=== PATIENT | male | born 1950 | race Caucasian/White ===

== ENCOUNTER 2020-06-09 10:57 | Inpatient (IN) | payer MEDICARE, OTHER ==
[~2020-06-09] VITALS: Ht 180.3 cm; Wt 61.2 kg
--- NOTE | 2020-06-09 13:00 | NUR ---
CLINICAL GENETICIST NOTE :Admitted A 69 Y/O male from [facility] on 5150 hold for GD ,per 5150 hold patient patient need assistance and declining help ,clients hands swollen and can't feed himself ,clients hand containing urine and feces through out the floor ,client does not have in home support services due to testing testing positive for Covid ,patient unable to care for himself .Upon face to face assessment ,patient alert ,oriented x1, easily agitated and aggressive,not following directions ,talking and mumbling to himself ,disheveled and unkempt ,disorganized thoughts,patient refused skin assessment but noted bilateral hands swollen and Daniella SIBLEY notified with new orders dee hand x-ray ,all orders carried out covering called with admission orders ,Daniella SIBLEY notified with admission orders.Patient has unsteady gait on fall precaution .Patient's right hand book given and explained to patient able to verbalize understanding ,start patient on q15 minutes safety check .
[2020-06-09] MEDS ORDERED: IBUP-1953 PO (13:25)
[2020-06-09] MEDS ORDERED: AMLO10TA4 PO (13:25)
[2020-06-09] MEDS ORDERED: CEPH-570 PO (13:25)
[2020-06-09] MEDS ORDERED: ACET-2605 PO (13:25)
--- NOTE | 2020-06-09 13:52 | NUR ---
SW Collateral Contact: SW called and left a voicemail for Eusebio Valdez Ceramic Tile Setter FSP ([phone]) to discuss treatment and discharge plan and collect collateral information. Waiting for a call back.
--- NOTE | 2020-06-09 13:52 | NUR ---
TODD Initial Discharge Plan: Patient currently resides at home [address], [place] [address] by himself. Eusebio Valdez Halfway House Counselor FSCorina ([phone]) is listed as a emergency contact (called and left a voicemail). TODD will continue to work with patient, family, and MD to ensure a safe and proper discharge plan.
[2020-06-09] MEDS ORDERED: MAG HYDROX/AL HYDROX/SIMETH 30 ML UDC PO PRN (14:00)
--- NOTE | 2020-06-09 14:08 | NUR ---
SW Substance Abuse Intervention: Patient was provided with a brief substance abuse intervention and referred to the following substance abuse programs: [facility] ([phone]); [facility] [address] [place] [address] ([phone]); [facility] [address] [facility] [place] [address] ([phone]); [facility] ([phone]); [facility] ([phone]); [facility] ([phone]); [facility] ([phone]).
[2020-06-09] MEDS ORDERED: BLOOD SUGAR DIAGNOSTIC 1 EACH STRIP IN ONE (14:15)
[2020-06-09] MEDS: LORAZEPAM 0.5 MG TABLET PO PRN (14:50)
--- NOTE | 2020-06-09 14:50 | NUR ---
PATIENT C/O ANXIETY AND MEDICATED WITH ATIVAN 0.5MG X1 WILL CONTINUE TO MONITOR .
[2020-06-09 16:00] VITALS: BP 138/82
[2020-06-09 20:15] VITALS: BP 139/75
[2020-06-09] MEDS: MIRTAZAPINE 15 MG TABLET PO SCH (21:12)
[2020-06-09] MEDS: CEPHALEXIN MONOHYDRATE 500 MG CAPSULE PO SCH (21:12)
[2020-06-09] MEDS: QUETIAPINE FUMARATE 25 MG TABLET PO SCH (21:12)
[2020-06-10 08:00] VITALS: BP 118/74
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
[2020-06-10] MEDS: AMLODIPINE BESYLATE 10 MG TABLET PO SCH (09:26)
[2020-06-10] MEDS: QUETIAPINE FUMARATE 25 MG TABLET PO SCH ×2 (09:26→17:59)
[2020-06-10] MEDS: CEPHALEXIN MONOHYDRATE 500 MG CAPSULE PO SCH ×4 (09:26→21:49)
[2020-06-10] MEDS: LORAZEPAM 0.5 MG TABLET PO PRN ×2 (09:39→09:40)
--- NOTE | 2020-06-10 09:42 | NUR ---
Practical Nurse Clinical Coordinator Contact: FSP Sternman Eusebio Valdez ([phone]), this SW contacted case technician and left a voicemail twice and is waiting for a call back.
--- NOTE | 2020-06-10 09:43 | NUR ---
given ativan for agitation.
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
--- NOTE | 2020-06-10 13:19 | NUR ---
SW Coordination of Care: This SW faxed patient's clinicals to Lew Simon ([phone]) who stated he will review and will follow up to find placement. He did state it might be difficult to place a pt who will need to continue chemo therapy. He stated he will look into this. Sent H & P notes, medication list, and progress notes.
--- NOTE | 2020-06-10 13:30 | NUR ---
jesus in to see ptCheryl
--- NOTE | 2020-06-10 14:34 | NUR ---
SW Coordination of Care: This SW faxed patient's clinicals to Lew Simon ([phone]) who stated pt is accepted at [facility].
[2020-06-10 16:54] VITALS: BP 121/54
--- NOTE | 2020-06-10 16:55 | NUR ---
pt. sleeping most of afternoon.
[2020-06-10] MEDS: ACETAMINOPHEN 325 MG TABLET PO PRN (17:59)
[2020-06-10 19:55] VITALS: BP 110/52
[2020-06-10 20:34] LABS: ALBUMIN 2.2 g/dL (3.4-5.0); BILIRUBIN,TOTAL 0.2 mg/dL (0.2-1.0); CALCIUM, SERUM 8.7 mg/dL (8.5-10.1); POTASSIUM 3.9 mmol/L (3.5-5.1); TOTAL PROTEIN, SERUM 6.2 g/dL (6.4-8.2)
[2020-06-10] MEDS: SULFAMETH/TRIMETH 800/160 MG 1 UDTAB TABLET PO SCH (21:49)
[2020-06-10] MEDS: MIRTAZAPINE 15 MG TABLET PO SCH (21:49)
[2020-06-10 22:33] VITALS: BP 150/69
[2020-06-11] MEDS: ACETAMINOPHEN 325 MG TABLET PO PRN ×3 (03:26→20:30)
[2020-06-11 07:48] LABS: BASOPHILS % (AUTO) 0.9 % (0.0-2.0); EOSINOPHILS % (AUTO) 1.9 % (0.0-6.0); HEMATOCRIT 29 % (39-51); HEMOGLOBIN 9.3 g/dL (13.5-17.5); LYMPHOCYTES # (AUTO) 0.8 /CMM (0.8-4.8); MEAN CORPUSCULAR HGB CONC 32 g/dl (31.0-36.0); MEAN CORPUSCULAR VOLUME 94 fL (80-96); MONOCYTES # (AUTO) 0.7 /CMM (0.1-1.30); MONOCYTES % (AUTO) 15.3 % (2.0-12.0); NEUTROPHILS # (AUTO) 3.1 /CMM (1.8-8.9); NEUTROPHILS % (AUTO) 65.9 % (43.0-81.0); PLATELET COUNT (AUTO) 297 /CMM (150-450); RED BLOOD CELL COUNT(AUTO) 3.06 MIL/uL (4.5-6.0); WHITE BLOOD COUNT (AUTO) 4.8 K/uL (4.3-11.0)
[2020-06-11 08:00] VITALS: BP 104/60
[2020-06-11 08:09] LABS: CREATININE 0.8 mg/dL (0.6-1.3); PHOSPHORUS 3.9 mg/dL (2.5-4.9); POTASSIUM 3.9 mmol/L (3.5-5.1)
[2020-06-11] MEDS: SULFAMETH/TRIMETH 800/160 MG 1 UDTAB TABLET PO SCH ×2 (08:13→20:30)
[2020-06-11] MEDS: CEPHALEXIN MONOHYDRATE 500 MG CAPSULE PO SCH ×2 (08:13→12:01)
[2020-06-11] MEDS: QUETIAPINE FUMARATE 25 MG TABLET PO SCH ×2 (08:14→16:43)
[2020-06-11] MEDS: AMLODIPINE BESYLATE 10 MG TABLET PO SCH (08:14)
[2020-06-11 08:29] LABS: CHOLESTEROL 193 mg/dL (<200); HDL CHOLESTEROL 64 mg/dL (40-60); LDL 108 mg/dL (0-99); TRIGLYCERIDES 79 mg/dL (30-150)
--- NOTE | 2020-06-11 09:39 | NUR ---
APS Contact: APS yolanda Shaylee ([phone]) called and collected collateral information regarding the patient's case.
[2020-06-11 10:53] LABS: PROSTATE SPECIFIC ANTIGEN SCR 4.51 ng/mL (0.00-4.00)
--- NOTE | 2020-06-11 11:00 | NUR ---
Keymodule Assembly Machine Tender: This SW contacted Gustabo ([phone]) and informed that patient is accepted at [facility]. [employer]abo was appreciative and agreeable with this plan.
--- NOTE | 2020-06-11 11:55 | NUR ---
RN-CO: TYLENOL 650 MG GIVEN FOR C/O RIGHT HAND PAIN.
--- NOTE | 2020-06-11 12:01 | NUR ---
RN-CO: COVID 19 TEST WAS GIVEN PER REQUEST OF SW DIRECTOR DEL PT'S CAREGIVER IS COVID POSITIVE.
[2020-06-11 16:00] VITALS: BP 115/59
[2020-06-11] MEDS: FERROUS SULFATE (325 MG) 325 MG/TAB TABLET PO SCH (18:00)
--- NOTE | 2020-06-11 18:00 | NUR ---
RN-CO: Patient's mood change from being very cooperative to angry and depressed. He refused to eat dinner and told the staff " go out of my room, I want to sleep!"
[2020-06-11 20:11] VITALS: BP_SYST 102; BP_SYST 110; BP_DIAS 42; BP_DIAS 55
[2020-06-11 20:21] LABS: BILIRUBIN,URINE NEGATIVE (NEGATIVE); COLOR,URINE YELLOW (YELLOW); LEUKOCYTE ESTERASE ,URINE NEGATIVE (NEGATIVE); NITRITE, URINE NEGATIVE (NEGATIVE); PH,URINE 7.5 (5.0-8.0); PROTEIN,URINE TRACE mg/dl (NEGATIVE); UGLUCOSE NEGATIVE (NEGATIVE)
[2020-06-11 20:38] LABS: BACTERIA,URINE 1+ /HPF (None Seen); MUCUS,URINE Few /LPF (None Seen); SQUAMOUS EPITHELIAL CELL,UR 0-2 /HPF (None Seen)
[2020-06-11] MEDS: MIRTAZAPINE 15 MG TABLET PO SCH (21:12)
[2020-06-12 08:00] VITALS: BP 140/71
--- NOTE | 2020-06-12 09:00 | NUR ---
RN NOTE- IN BED C/O HAND PAIN . TYLENOL 650 MG GIVEN. PO INTAKE FAIR DENIES SI HI AH VH , CONFUSION PRESENT, DIRECTABLE
[2020-06-12] MEDS: AMLODIPINE BESYLATE 10 MG TABLET PO SCH (09:53)
[2020-06-12] MEDS: SULFAMETH/TRIMETH 800/160 MG 1 UDTAB TABLET PO SCH ×2 (09:53→20:48)
[2020-06-12] MEDS: FERROUS SULFATE (325 MG) 325 MG/TAB TABLET PO SCH ×2 (09:53→17:01)
[2020-06-12] MEDS: QUETIAPINE FUMARATE 25 MG TABLET PO SCH ×3 (09:53→17:01)
[2020-06-12] MEDS: ACETAMINOPHEN 325 MG TABLET PO PRN (09:58)
--- NOTE | 2020-06-12 13:23 | NUR ---
Individual Counseling: home support worker met with patient for brief counseling to help address patients presenting problem with disorganized thought content. Patient is unable to engage in a meaningful conversation. Patient appeared disorganized and confused. SW was unable to conduct individual counseling.
[2020-06-12] MEDS ORDERED: IV NS 0.9% 250 ML IV ONE (13:50)
[2020-06-12] MEDS ORDERED: IOHEXOL-300 100 ML VIAL IV ONE (13:50)
[2020-06-12] MEDS ORDERED: CT SWABBABLE VALVE TRANS SET 1 EA INFUS.SET MC ONE (13:50)
[2020-06-12 16:00] VITALS: BP 141/68
[2020-06-12 20:00] VITALS: BP 111/63
[2020-06-12] MEDS: MIRTAZAPINE 15 MG TABLET PO SCH (21:17)
[2020-06-12] MEDS: LORAZEPAM 0.5 MG TABLET PO PRN (23:47)
--- NOTE | 2020-06-12 23:48 | NUR ---
RN NOTES: ANXIETY PT. NOTED VERY ANXIOUS PARANOID , YELLING ,RESTLESS NOT STAYING IN BED ,ATIVAN 0.5 MG PO PRN GIVEN , WILL CONTINUE TO MONITOR.
[2020-06-13] MEDS: TEMAZEPAM 7.5 MG CAPSULE PO PRN (01:19)
--- NOTE | 2020-06-13 01:21 | NUR ---
RN NOTES : INSOMNIA PT. UNABLE TO SLEEP RESTORIL 7.5 MG PO PRN GIVEN PER PT. REQUEST , WILL CONTINUE TO MONITOR.
--- NOTE | 2020-06-13 07:00 | NUR ---
RN NOTES : AM LABS REFUSAL PT. REFUSED AM LABS ,ENCOURAGED, RISKS BENEFITS EXPLINED , PT. STRONGLY REFUSED, WILL CONTINUITY WITH CARE.
--- NOTE | 2020-06-13 07:02 | NUR ---
RN NOTES: PT. BEHAVIOR UNCOOPERTIVE ,EASILY AGITAED, PARANOID, CLIMBING OUT THE BED, NO ACUTE DISTRESS NOTES , NO CHANGE OF CONDITION NOTED , DENIES ANY PAIN DISCOMFORT AT THIS TIME , ALL NEEDS ATTENDED AND ANTICIPATED, WILL ENDORSE TO DAY NURSE FOR CONTINUITY OF CARE .
[2020-06-13 08:00] VITALS: BP 133/76
[2020-06-13] MEDS: SULFAMETH/TRIMETH 800/160 MG 1 UDTAB TABLET PO SCH ×2 (08:09→20:45)
[2020-06-13] MEDS: FERROUS SULFATE (325 MG) 325 MG/TAB TABLET PO SCH ×2 (08:09→17:22)
[2020-06-13] MEDS: AMLODIPINE BESYLATE 10 MG TABLET PO SCH (08:10)
[2020-06-13] MEDS: QUETIAPINE FUMARATE 25 MG TABLET PO SCH ×3 (08:10→17:22)
[2020-06-13] MEDS: LORAZEPAM 0.5 MG TABLET PO PRN (08:37)
--- NOTE | 2020-06-13 08:37 | NUR ---
RN NOTE- AGITATION YELLING BANGING ON THINGS. ATIVAN 0.5 MG GIVEN
--- NOTE | 2020-06-13 09:00 | NUR ---
RN NOTE- PT ALERT ORIENTED TO PERSON ONLY CONFUSED LABILE AT TIMES YELLING AGITATED. MED COMPLIANT PO INTAKE GOOD HANDS EDEMATOUS AND PAINFUL. TYLENOL DECREASING DISCOMFORT
[2020-06-13 10:00] LABS: BASOPHILS % (AUTO) 0.6 % (0.0-2.0); EOSINOPHILS % (AUTO) 0.2 % (0.0-6.0); HEMATOCRIT 31 % (39-51); HEMOGLOBIN 9.8 g/dL (13.5-17.5); LYMPHOCYTES # (AUTO) 0.5 /CMM (0.8-4.8); LYMPHOCYTES % (AUTO) 6.1 % (20.0-44.0); MEAN CORPUSCULAR HGB CONC 32 g/dl (31.0-36.0); MEAN CORPUSCULAR VOLUME 94 fL (80-96); NEUTROPHILS # (AUTO) 6.4 /CMM (1.8-8.9); NEUTROPHILS % (AUTO) 80.1 % (43.0-81.0); PLATELET COUNT (AUTO) 398 /CMM (150-450); RED BLOOD CELL COUNT(AUTO) 3.29 MIL/uL (4.5-6.0); WHITE BLOOD COUNT (AUTO) 7.9 K/uL (4.3-11.0)
[2020-06-13 10:28] LABS: ALBUMIN 2.8 g/dL (3.4-5.0); BILIRUBIN,TOTAL 0.2 mg/dL (0.2-1.0); CALCIUM, SERUM 9.8 mg/dL (8.5-10.1); CREATININE 1.4 mg/dL (0.6-1.3); TOTAL PROTEIN, SERUM 8.1 g/dL (6.4-8.2)
[2020-06-13 16:00] VITALS: BP 107/62
--- NOTE | 2020-06-13 17:50 | NUR ---
RN NOTE- PT HAD SMALL EPISODE OF CLEAR LIQUID EMESIS. PT ALERT ORIENTED TO SELF. CONFUSED. HASN'T HAD BM X 4 DAYS. BS + AND HYPOACTIVE. NO RIGIDITY. NO GUARDING. NO REBOUND TENDERNESS. PT ON IRON FOR LOW FE AND TIBC. VS- BP-134/52, HR- 78, RR- 18, T- 97.8, SATS 97% RA. PT IN NO DISTRESS. CHANGED DIAPER CLEANED PT PLACED IN BED W ELEVATED HOB. WILL SUGGEST TO NOC SHIFT MOM 30 CC IN AM BEFORE END OF SHIFT TO INITIATE BM.
[2020-06-13 20:01] VITALS: BP 104/56
--- NOTE | 2020-06-13 21:00 | NUR ---
.RN NOTES: PT ALERT ORIENTED TO SELF. CONFUSED. HASN'T HAD BM X 4 DAYS NOTED. BOWEL SOUND HYPOACTIVE, NO RIGIDITY, NO GUARDING. NO REBOUND TENDERNESS AT THIS TIME. NO ACUTE DISTRESS NOTED , PT. DENIES ANY PAIN DISCOMFORT AT THIS TIME,OFFERD MOM BUT PT. REFUSED TO TAKE AT THIS TIME, PER PT. I DON'T WANT TAKE NOW, WILL TRY AGAIN , WILL CONTINUITY WITH CARE.
[2020-06-13] MEDS: MIRTAZAPINE 15 MG TABLET PO SCH (21:24)
[2020-06-14] MEDS: Z GUARD REMEDY 2 OZ OINT TP PRN (05:51)
[2020-06-14] MEDS: MAGNESIUM HYDROXIDE 30 ML UDC PO PRN ×2 (06:06→18:21)
--- NOTE | 2020-06-14 06:08 | NUR ---
RN NOTES : MOM GIVEN PT. HAS NOT BM IN 4 DAYS MOM GIVEN , DENIES ANY PAIN DISCOMFORT AT THIS TIME, WILL ENDORSE TO AM NURSE CONTINUE TO MONITOR FOR EFFECTIVENESS .
[2020-06-14 08:00] VITALS: BP 117/71
[2020-06-14 08:06] LABS: IMMUNOGLOBULIN A, SERUM 281 mg/dL (61-437); IMMUNOGLOBULIN G, SERUM 711 mg/dL (603-1613); IMMUNOGLOBULIN M, SERUM 36 mg/dL (20-172)
[2020-06-14] MEDS: AMLODIPINE BESYLATE 10 MG TABLET PO SCH (09:00)
[2020-06-14] MEDS: FERROUS SULFATE (325 MG) 325 MG/TAB TABLET PO SCH ×2 (09:08→16:27)
[2020-06-14] MEDS: QUETIAPINE FUMARATE 25 MG TABLET PO SCH ×3 (09:09→16:27)
[2020-06-14] MEDS: SULFAMETH/TRIMETH 800/160 MG 1 UDTAB TABLET PO SCH ×2 (09:09→20:53)
--- NOTE | 2020-06-14 09:10 | NUR ---
RN NOTES BP 117/71 NORVASC 10MG 1 TAB P.O. WAS WITH HELD. WILL CONTINUE TO MONITOR.
[2020-06-14 16:00] VITALS: BP 140/70
[2020-06-14 19:55] LABS: CREATININE, URINE 46.7 MG/DL (30.0-125.0); URINE TOTAL PROTEIN 43.5 mg/dL (0-11.9)
[2020-06-14 20:00] VITALS: BP 116/68
[2020-06-14 20:12] LABS: BILIRUBIN,URINE NEGATIVE (NEGATIVE); COLOR,URINE YELLOW (YELLOW); LEUKOCYTE ESTERASE ,URINE TRACE (NEGATIVE); NITRITE, URINE NEGATIVE (NEGATIVE); PROTEIN,URINE TRACE mg/dl (NEGATIVE); UGLUCOSE NEGATIVE (NEGATIVE); UROBILINOGEN,URINE 0.2 EU/dL (0.2)
[2020-06-14 20:18] LABS: BACTERIA,URINE 2+ /HPF (None Seen); SQUAMOUS EPITHELIAL CELL,UR 0-2 /HPF (None Seen); URINE AMORPHOUS PHOSPHATES Many /HPF (None Seen)
[2020-06-14 20:48] LABS: EOSINOPHIL,URINE None Seen
[2020-06-14] MEDS: MIRTAZAPINE 15 MG TABLET PO SCH (21:10)
--- NOTE | 2020-06-15 06:02 | NUR ---
RN NOTES: PREVIOUS SHIFT MOM GIVEN AT 1827 ,NO BM REPORTED, PT. DEINES ANY PAIN DISCOMFORT AT THIS TIME , AND ENDORSE TO DAY NURSE FOR CONTINUE TO MONITOR.
[2020-06-15 06:46] LABS: BASOPHILS % (AUTO) 0.2 % (0.0-2.0); HEMATOCRIT 29 % (39-51); HEMOGLOBIN 9.4 g/dL (13.5-17.5); LYMPHOCYTES # (AUTO) 0.8 /CMM (0.8-4.8); LYMPHOCYTES % (AUTO) 11.4 % (20.0-44.0); MEAN CORPUSCULAR HGB CONC 32 g/dl (31.0-36.0); MEAN CORPUSCULAR VOLUME 93 fL (80-96); NEUTROPHILS # (AUTO) 4.8 /CMM (1.8-8.9); NEUTROPHILS % (AUTO) 72.4 % (43.0-81.0); PLATELET COUNT (AUTO) 440 /CMM (150-450); RED BLOOD CELL COUNT(AUTO) 3.14 MIL/uL (4.5-6.0); WHITE BLOOD COUNT (AUTO) 6.7 K/uL (4.3-11.0)
[2020-06-15 07:41] LABS: ALBUMIN 2.6 g/dL (3.4-5.0); BILIRUBIN,TOTAL 0.2 mg/dL (0.2-1.0); CALCIUM, SERUM 9.8 mg/dL (8.5-10.1); CREATININE 1.2 mg/dL (0.6-1.3); MAGNESIUM 2.3 mg/dL (1.8-2.4); PHOSPHORUS 3.8 mg/dL (2.5-4.9); POTASSIUM 5.6 mmol/L (3.5-5.1); TOTAL PROTEIN, SERUM 7.8 g/dL (6.4-8.2)
[2020-06-15 08:00] VITALS: BP 119/75
[2020-06-15] MEDS: FERROUS SULFATE (325 MG) 325 MG/TAB TABLET PO SCH ×2 (08:31→16:54)
[2020-06-15] MEDS: SULFAMETH/TRIMETH 800/160 MG 1 UDTAB TABLET PO SCH ×2 (08:31→21:46)
[2020-06-15] MEDS: QUETIAPINE FUMARATE 25 MG TABLET PO SCH ×3 (08:31→16:54)
[2020-06-15] MEDS: AMLODIPINE BESYLATE 10 MG TABLET PO SCH (08:37)
--- NOTE | 2020-06-15 09:00 | NUR ---
RN NOTE- PT ALERT CONFUSED DISORGANIZED MED COMPLIANT CALM DIRECTABLE AT PRESENT NO BEHAVIORAL ISSUES
[2020-06-15 11:07] LABS: *SPE A/G RATIO 0.6 (0.7-1.7); *SPE ALBUMIN 2.7 g/dL (2.9-4.4); *SPE ALPHA-1-GLOBULIN 0.7 g/dL (0.0-0.4); *SPE ALPHA-2-GLOBULIN 1.5 g/dL (0.4-1.0); *SPE BETA GLOBULIN 1.3 g/dL (0.7-1.3); *SPE GLOBULIN, TOTAL 4.4 g/dL (2.2-3.9); *SPE M-SPIKE Not Observed g/dL (Not Observed); *SPEGAMMA GLOBULIN 0.8 g/dL (0.4-1.8)
--- NOTE | 2020-06-15 11:25 | NUR ---
Probable Cause Hearing: Pts [phone] hold was upheld for grave disability.
[2020-06-15] MEDS ORDERED: MAGNESIUM CITRATE 296 ML BOTTLE PO ONE (13:00)
--- NOTE | 2020-06-15 13:26 | NUR ---
RN NOTE- PT W NO BM X FIVE DAYS. DR SALMERON ORDERED MAG CITRATE ONE BOTTLE X ONE DAOSE AND COLACE 250 MG PO QD. COMPLIED
--- NOTE | 2020-06-15 15:35 | NUR ---
RN NOTE- PT NEEDING CONSENT FOR FULL BODY BONE SCAN THROUGH NUCLEAR MEDICINE . PT CONFUSED AND I SPOKE W SAILAJA SHAH PROFESSOR OF [employer] REGARDING. SHE STATES PTS BASELINE IS A BIT CONFUSED AND WHEN SHE SPOKE TO HIM TODAY, HE SEEMED HIS USUAL SELF. WILL EXPLAIN CONSENT TO PT AND HAVE HIM SIGN.
[2020-06-15 16:00] VITALS: BP 143/75
[2020-06-15 20:43] VITALS: BP 146/77
[2020-06-15] MEDS ORDERED: SODIUM POLYSTYRENE SULFONATE 15 G/60 ML BOTTLE PO ONE (21:00)
[2020-06-15] MEDS: MIRTAZAPINE 15 MG TABLET PO SCH (21:46)
[2020-06-16] MEDS: TEMAZEPAM 7.5 MG CAPSULE PO PRN (00:01)
--- NOTE | 2020-06-16 06:44 | NUR ---
GPS RN CLOSING NOTES: PATIENT IS IN BED SLEEPING COMFORTABLY. RESPIRATION EVEN AND UNLABORED WITH EQUAL RISE AND FALL OF THE CHEST ON ROOM AIR. NO S/S OF DISTRESS. SAFETY PRECAUTION MAINTAINED, BED IN LOWEST POSITION AND LOCKED. Q15 MINUTES SAFETY ROUND CONTINUED. ALL PATIENT CARE NEEDS MET ANTICIPATED. WILL CONTINUE TO MONITOR PATIENT FOR MOOD, BEHAVIOR AND SAFETY AND ENDORSE TO AM SHIFT.
[2020-06-16] MEDS: LORAZEPAM 0.5 MG TABLET PO PRN (07:30)
--- NOTE | 2020-06-16 07:30 | NUR ---
RN NOTE- PT W YELLING AND AGITATION. ATIVAN 0.5 MG GIVEN
[2020-06-16 08:00] VITALS: BP 145/80
[2020-06-16 08:07] LABS: PTH, INTACT 21 pg/mL (15-65)
[2020-06-16] MEDS: QUETIAPINE FUMARATE 25 MG TABLET PO SCH ×3 (08:44→16:19)
[2020-06-16] MEDS: DOCUSATE SODIUM 250 MG CAPSULE PO SCH (08:44)
[2020-06-16] MEDS: SULFAMETH/TRIMETH 800/160 MG 1 UDTAB TABLET PO SCH ×2 (08:44→21:08)
[2020-06-16] MEDS: FERROUS SULFATE (325 MG) 325 MG/TAB TABLET PO SCH (08:44)
[2020-06-16] MEDS: AMLODIPINE BESYLATE 10 MG TABLET PO SCH (08:45)
--- NOTE | 2020-06-16 09:00 | NUR ---
RN NOTE- PT MOSTLY UNCHANGED SINCE YESTERDAY THOUGH A BIT IRRITABLE THIS MORNING DURING VS AND MED PASS. PT ALERT CONFUSED DISORGANIZED MERD COMPLIANT CALM DIRECTABLE AT PRESENT NO BEHAVIORAL ISSUES
[2020-06-16 16:00] VITALS: BP 115/75
[2020-06-16 18:10] LABS: ALBUMIN 3.1 g/dL (3.4-5.0); BILIRUBIN,TOTAL 0.2 mg/dL (0.2-1.0); CALCIUM, SERUM 10.7 mg/dL (8.5-10.1); CREATININE 1.4 mg/dL (0.6-1.3); MAGNESIUM 2.6 mg/dL (1.8-2.4); PHOSPHORUS 5.2 mg/dL (2.5-4.9); POTASSIUM 4.7 mmol/L (3.5-5.1)
[2020-06-16 19:31] LABS: BASOPHILS # (AUTO) 0.1 /CMM (0.0-0.2); BASOPHILS % (AUTO) 1.2 % (0.0-2.0); HEMATOCRIT 32 % (39-51); HEMOGLOBIN 10.5 g/dL (13.5-17.5); LYMPHOCYTES # (AUTO) 1.1 /CMM (0.8-4.8); LYMPHOCYTES % (AUTO) 17.2 % (20.0-44.0); MEAN CORPUSCULAR HGB CONC 33 g/dl (31.0-36.0); MEAN CORPUSCULAR VOLUME 91 fL (80-96); MONOCYTES % (AUTO) 15.4 % (2.0-12.0); NEUTROPHILS # (AUTO) 4.3 /CMM (1.8-8.9); NEUTROPHILS % (AUTO) 65.2 % (43.0-81.0); PLATELET COUNT (AUTO) 583 /CMM (150-450); RED BLOOD CELL COUNT(AUTO) 3.52 MIL/uL (4.5-6.0); WHITE BLOOD COUNT (AUTO) 6.6 K/uL (4.3-11.0)
[2020-06-16 21:06] VITALS: BP 144/77
[2020-06-16] MEDS: MIRTAZAPINE 15 MG TABLET PO SCH (21:08)
--- NOTE | 2020-06-17 06:22 | NUR ---
Pt had BM during shift. No c/o of discomfort or pain. Abdomen soft to touch. Pt Med compliant and cooperative with care. Will endorse to next shift.
[2020-06-17 07:36] LABS: BASOPHILS # (AUTO) 0.1 /CMM (0.0-0.2); BASOPHILS % (AUTO) 1.5 % (0.0-2.0); EOSINOPHILS % (AUTO) 1.7 % (0.0-6.0); HEMATOCRIT 28 % (39-51); HEMOGLOBIN 9.4 g/dL (13.5-17.5); LYMPHOCYTES # (AUTO) 0.9 /CMM (0.8-4.8); LYMPHOCYTES % (AUTO) 14.5 % (20.0-44.0); MEAN CORPUSCULAR HGB CONC 33 g/dl (31.0-36.0); MEAN CORPUSCULAR VOLUME 90 fL (80-96); NEUTROPHILS % (AUTO) 65.3 % (43.0-81.0); PLATELET COUNT (AUTO) 515 /CMM (150-450); RED BLOOD CELL COUNT(AUTO) 3.15 MIL/uL (4.5-6.0); WHITE BLOOD COUNT (AUTO) 6.1 K/uL (4.3-11.0)
[2020-06-17 08:00] VITALS: BP 129/77
[2020-06-17 08:24] LABS: ALBUMIN 2.8 g/dL (3.4-5.0); BILIRUBIN,TOTAL 0.2 mg/dL (0.2-1.0); CALCIUM, SERUM 10.1 mg/dL (8.5-10.1); CREATININE 1.3 mg/dL (0.6-1.3); POTASSIUM 4.3 mmol/L (3.5-5.1); TOTAL PROTEIN, SERUM 8.1 g/dL (6.4-8.2)
[2020-06-17] MEDS: DOCUSATE SODIUM 250 MG CAPSULE PO SCH (10:27)
[2020-06-17] MEDS: QUETIAPINE FUMARATE 25 MG TABLET PO SCH ×3 (10:27→18:26)
[2020-06-17] MEDS: AMLODIPINE BESYLATE 10 MG TABLET PO SCH (10:27)
[2020-06-17] MEDS: FERROUS SULFATE (325 MG) 325 MG/TAB TABLET PO SCH (10:28)
[2020-06-17 10:41] LABS: LYMPHOCYTES % (MANUAL) 13 % (16-48); MONOCYTES % (MANUAL) 10 % (0-11.0); MYELOCYTES % 1 % (0-0); NEUTROPHILS % (MANUAL) 76 (42-76)
[2020-06-17 14:07] LABS: *SPE A/G RATIO 0.6 (0.7-1.7); *SPE ALBUMIN 2.5 g/dL (2.9-4.4); *SPE ALPHA-1-GLOBULIN 0.6 g/dL (0.0-0.4); *SPE ALPHA-2-GLOBULIN 1.5 g/dL (0.4-1.0); *SPE BETA GLOBULIN 1.3 g/dL (0.7-1.3); *SPE GLOBULIN, TOTAL 4.3 g/dL (2.2-3.9); *SPE M-SPIKE Not Observed g/dL (Not Observed); *SPEGAMMA GLOBULIN 0.8 g/dL (0.4-1.8)
--- NOTE | 2020-06-17 14:33 | NUR ---
District Manager Contact: SW received a call from Rome Stone ([phone]) and informed him that the pt has been showing improvement and that he will discharged to a SNF on Monday called [facility].
[2020-06-17 16:00] VITALS: BP 120/74
--- NOTE | 2020-06-17 18:00 | NUR ---
in room most of the day.med compliant.no behavior or safety issues.
[2020-06-17 20:26] VITALS: BP 106/52
[2020-06-17] MEDS: MIRTAZAPINE 15 MG TABLET PO SCH (21:35)
[2020-06-18] MEDS: ACETAMINOPHEN 325 MG TABLET PO PRN (03:49)
[2020-06-18 07:22] LABS: BASOPHILS # (AUTO) 0.1 /CMM (0.0-0.2); BASOPHILS % (AUTO) 1.2 % (0.0-2.0); EOSINOPHILS % (AUTO) 2.5 % (0.0-6.0); HEMATOCRIT 27 % (39-51); HEMOGLOBIN 8.7 g/dL (13.5-17.5); LYMPHOCYTES # (AUTO) 0.9 /CMM (0.8-4.8); LYMPHOCYTES % (AUTO) 14.6 % (20.0-44.0); MEAN CORPUSCULAR HGB CONC 33 g/dl (31.0-36.0); MEAN CORPUSCULAR VOLUME 90 fL (80-96); MONOCYTES # (AUTO) 1.1 /CMM (0.1-1.30); MONOCYTES % (AUTO) 16.8 % (2.0-12.0); NEUTROPHILS # (AUTO) 4.1 /CMM (1.8-8.9); NEUTROPHILS % (AUTO) 64.9 % (43.0-81.0); PLATELET COUNT (AUTO) 538 /CMM (150-450); RED BLOOD CELL COUNT(AUTO) 2.96 MIL/uL (4.5-6.0); WHITE BLOOD COUNT (AUTO) 6.4 K/uL (4.3-11.0)
[2020-06-18 08:00] VITALS: BP 119/73
[2020-06-18] MEDS: DOCUSATE SODIUM 250 MG CAPSULE PO SCH (09:04)
[2020-06-18] MEDS: QUETIAPINE FUMARATE 25 MG TABLET PO SCH ×3 (09:04→16:49)
[2020-06-18] MEDS: FERROUS SULFATE (325 MG) 325 MG/TAB TABLET PO SCH (09:04)
[2020-06-18] MEDS: AMLODIPINE BESYLATE 10 MG TABLET PO SCH (09:04)
--- NOTE | 2020-06-18 11:00 | NUR ---
RN-CO: DR SHILOH Olvera made aware of patient's lab result and his H&H level.
[2020-06-18 12:33] LABS: EOSINOPHILS % (MANUAL) 1 % (0-4); LYMPHOCYTES % (MANUAL) 21 % (16-48); MONOCYTES % (MANUAL) 4 % (0-11.0); NEUTROPHILS % (MANUAL) 74 (42-76)
--- NOTE | 2020-06-18 15:46 | NUR ---
FAXED TO DR. DORIAN SIMS ([facility]) AUTHORIZATION TO RELEASE MEDICAL RECORDS TO [phone], AWAITING FOR DOCUMENTS.
[2020-06-18 16:00] VITALS: BP 101/51
[2020-06-18] MEDS: LORAZEPAM 0.5 MG TABLET PO PRN (19:50)
--- NOTE | 2020-06-18 19:52 | NUR ---
RN NOTES: ANXIETY PT.C/O FEELING VERY ANXIOUS PARANOID,SCREAMING ATIVAN 0.5 MG PO PRN GIVEN PER PT. REQUEST , WILL CONTINUE TO MONITOR.
[2020-06-18 20:23] VITALS: BP 127/76
[2020-06-18] MEDS: MIRTAZAPINE 15 MG TABLET PO SCH (21:01)
[2020-06-19] MEDS: TEMAZEPAM 7.5 MG CAPSULE PO PRN (01:35)
[2020-06-19] MEDS: Z GUARD REMEDY 2 OZ OINT TP PRN (05:51)
[2020-06-19 07:58] LABS: BASOPHILS # (AUTO) 0.1 /CMM (0.0-0.2); BASOPHILS % (AUTO) 1.2 % (0.0-2.0); EOSINOPHILS % (AUTO) 1.9 % (0.0-6.0); HEMATOCRIT 28 % (39-51); HEMOGLOBIN 9.3 g/dL (13.5-17.5); LYMPHOCYTES % (AUTO) 13.6 % (20.0-44.0); MEAN CORPUSCULAR HGB CONC 33 g/dl (31.0-36.0); MEAN CORPUSCULAR VOLUME 90 fL (80-96); MONOCYTES # (AUTO) 1.1 /CMM (0.1-1.30); MONOCYTES % (AUTO) 15.5 % (2.0-12.0); NEUTROPHILS # (AUTO) 4.8 /CMM (1.8-8.9); NEUTROPHILS % (AUTO) 67.8 % (43.0-81.0); PLATELET COUNT (AUTO) 526 /CMM (150-450); RED BLOOD CELL COUNT(AUTO) 3.14 MIL/uL (4.5-6.0); WHITE BLOOD COUNT (AUTO) 7.1 K/uL (4.3-11.0)
[2020-06-19 08:00] VITALS: BP 127/73
[2020-06-19 08:02] LABS: ALBUMIN 2.7 g/dL (3.4-5.0); BILIRUBIN,TOTAL 0.2 mg/dL (0.2-1.0); CREATININE 0.9 mg/dL (0.6-1.3); POTASSIUM 4.2 mmol/L (3.5-5.1)
[2020-06-19] MEDS: DOCUSATE SODIUM 250 MG CAPSULE PO SCH (08:17)
[2020-06-19 08:18] VITALS: BP 127/73
[2020-06-19] MEDS: FERROUS SULFATE (325 MG) 325 MG/TAB TABLET PO SCH (08:18)
[2020-06-19] MEDS: AMLODIPINE BESYLATE 10 MG TABLET PO SCH (08:18)
[2020-06-19] MEDS: QUETIAPINE FUMARATE 25 MG TABLET PO SCH ×2 (08:18→12:52)
--- NOTE | 2020-06-19 09:00 | NUR ---
RN NOTE- FOR DC TODAY PT AWAKE RESTING IN BED, NO DISTRESS NOTED. NO C/O PAIN. PT MED COMPLIANT. SAFETY PRECAUTIONS MAINTAINED. WILL CONTINUE TO MONITOR PT Q15 MIN FOR SAFETY AND BEHAVIOR.
--- NOTE | 2020-06-19 13:48 | NUR ---
RN NOTE- DISCHARGE - PT DC TO [facility] VIA AMBULANCE AND GURNEY. PT ALERT ORIENTED TO PERSON PLACE . CONFUSED. DENIES SI HI AH VH. VS STABLE. VALUABLES RETURNED TO PATIENT, FLU AND PNA VACCINES REFUSED. NO SKIN ISSUES NOTED. NO PHOTOS REQUIRED. REPORT CALLED TO FACILITY. ID [id number] REMOVED. ESCORTED OFF UNIT BY STAFF
--- NOTE | 2020-06-19 14:07 | NUR ---
Discharge Note: Pt will be discharged to [facility] ([facility]) located at [address] [place] [id number]; ([phone]). Pt will be transported via [facility] at 1PM. Pts rn case mgr, Rome Stone ([phone]), was informed of the discharge. Upon discharge, the pt appears to be in a depressed mood and presented with a distressed affect. Pt appears to be alert and oriented x3 (time, place, and self). Pt denies both suicidal and homicidal ideation as well as auditory and visual hallucinations. Pt appears to be ambulatory with an unsteady gait. Pt appears to be disheveled and groomed. Pt will continue to be under the care of psychiatrist, Dr. Jones, located at [address], [address] [place] [address]; . Pt will be under the care of business operations director, Dr. Franco, located at [address] [place] [address]; . Choice of vendor form, and multidisciplinary exit care form were done, printed, signed, and given to the patient.
== END 2020-06-19 13:48 | DRG 885 ==
LOC: GPS 12:25
PROVIDERS: ADMIT Psychiatry & Neurology Psychiatry
DX: F33.3 Major depressive disorder, recurrent, severe with psychotic symptoms (principal); F01.50 Vascular dementia, unspecified severity, without behavioral disturbance, psychotic disturbance, mood disturbance, and anxiety; N17.0 Acute kidney failure with tubular necrosis; N39.0 Urinary tract infection, site not specified; L03.114 Cellulitis of left upper limb; L03.113 Cellulitis of right upper limb; D62 Acute posthemorrhagic anemia; E87.1 Hypo-osmolality and hyponatremia; F41.9 Anxiety disorder, unspecified; Z73.6 Limitation of activities due to disability; S60.551A Superficial foreign body of right hand, initial encounter; X58.XXXA Exposure to other specified factors, initial encounter; Y92.9 Unspecified place or not applicable; Z85.46 Personal history of malignant neoplasm of prostate; Z85.118 Personal history of other malignant neoplasm of bronchus and lung; F19.10 Other psychoactive substance abuse, uncomplicated; Z91.14 Patient's other noncompliance with medication regimen; Z87.440 Personal history of urinary (tract) infections; Z86.16 Personal history of COVID-19; Z20.822 Contact with and (suspected) exposure to COVID-19; M19.90 Unspecified osteoarthritis, unspecified site; K40.90 Unilateral inguinal hernia, without obstruction or gangrene, not specified as recurrent; M85.80 Other specified disorders of bone density and structure, unspecified site; D50.9 Iron deficiency anemia, unspecified; E83.52 Hypercalcemia; J47.9 Bronchiectasis, uncomplicated; F29 Unspecified psychosis not due to a substance or known physiological condition; E87.5 Hyperkalemia; T36.8X5A Adverse effect of other systemic antibiotics, initial encounter; I77.810 Thoracic aortic ectasia; J43.9 Emphysema, unspecified
CPT/HCPCS: 36415; 71260-TC; 73130-TC; 78306-TC; 80048-TC; 80053-TC; 80061-TC; 81001; 82378; 82550-TC; 82570-TC; 82728-TC; 82784; 83540-TC; 83735-TC; 83970; 84100-TC; 84153-TC; 84154-TC; 84155; 84155-TC; 84165; 84300-TC; 85025-TC; 86334; 87081-TC; 87086-TC; A9503; J7050; Q9967